=== PATIENT | male | born 1950 | race Caucasian/White ===

== ENCOUNTER 2020-09-11 10:05 | Emergency (ER) | payer MEDICARE, BC | END 2020-09-11 10:46 | disposition home or self-care (01) | LOC: BURERS 10:05 | DX: M79.18 Myalgia, other site (principal); I10 Essential (primary) hypertension; Z79.82 Long term (current) use of aspirin; Z79.899 Other long term (current) drug therapy | CPT/HCPCS: 99283 ==

== ENCOUNTER 2022-08-05 14:49 | Emergency (ER) | payer MEDICARE, BC ==
[2022-08-05 15:43] LABS: #Basophils 0.1 thou/uL (0.0-0.2); #Eosinphils 0.3 thou/uL (0.0-0.7); #Lymphocytes 3.9 thou/uL (1.20-3.40); #Monocytes 1.1 thou/uL (0.11-0.59); %Eosinophils 2.5 % (0.0-10.0); %Lymphocytes 28.9 % (21.0-51.0); %Monocytes 8.3 % (0.0-10.0); %Neutrophils 59.2 % (42.0-75.0); Hemoglobin 15.5 g/dL (14.0-18.0); Mean Corpuscular HGB CONC 34.2 g/dL (32.0-36.0); Mean Corpuscular Hemoglobin 31.7 pg (27.0-31.0); Mean Corpuscular Volume 92.8 fl (78.0-98.0); Platelet Count 248 10x3/uL (130-400); RBC Distribution Width 12.4 % (11.5-14.5); Red Blood Cell (RBC) Count 4.89 mill/uL (4.70-6.10); White Blood Cell (WBC) Count 13.6 10x3/uL (4.8-10.8)
[2022-08-05 15:58] LABS: ALT (SGPT) 28 U/L (8-55); AST (SGOT) 20 U/L (5-34); Albumin 4.1 g/dL (3.4-4.8); Alkaline Phosphatase 66 U/L (40-110); Anion Gap 16 mmol/L (10-20); BUN (Urea Nitrogen) 16 mg/dL (8.4-25.7); Bilirubin, Total 0.3 mg/dL (0.2-1.2); Calc. Creatinine Clearance 0 mL/min (70-130); Calcium 9.1 mg/dL (7.8-10.44); Carbon Dioxide 24 mmol/L (23-31); Chloride 106 mmol/L (98-107); Estimated GFR 60; Globulin 3.1 g/dL (2.4-3.5); Glucose 114 mg/dL (80-115); Potassium 3.7 mmol/L (3.5-5.1); Protein, Total 7.2 g/dL (5.8-8.1); Sodium 142 mmol/L (136-145)
[2022-08-05] MEDS ORDERED: Iopamidol 370 76% 100 ML VIAL ONE (17:32)
== END 2022-08-05 17:30 | disposition home or self-care (01) ==
LOC: BURERS 14:49
DX: K43.9 Ventral hernia without obstruction or gangrene (principal); I10 Essential (primary) hypertension
CPT/HCPCS: 36415; 74177; 80053; 83605; 84484; 85025; 93005; Q9967

== ENCOUNTER 2023-09-17 08:14 | Emergency (ER) | payer MEDICARE, BC | END 2023-09-17 09:00 | disposition home or self-care (01) | LOC: BURERS 08:14 | DX: J06.9 Acute upper respiratory infection, unspecified (principal); E78.5 Hyperlipidemia, unspecified; I10 Essential (primary) hypertension; Z79.899 Other long term (current) drug therapy | CPT/HCPCS: 99283 ==

== ENCOUNTER 2024-06-28 11:43 | Emergency (ER) | payer MEDICARE, BC | END 2024-06-28 12:08 | disposition home or self-care (01) | LOC: BURERS 11:43 | DX: I10 Essential (primary) hypertension (principal) | CPT/HCPCS: 93005; 99283 ==